=== PATIENT | male | born 1970 | race Caucasian/White ===

== ENCOUNTER → 2020-06-21 | Outpatient (CLI) | payer BC | LOC: YCFC.O 13:48 | PROVIDERS: ATTEND Nurse Practitioner Family | DX: Z20.828 Contact with and (suspected) exposure to other viral communicable diseases (principal) ==

== ENCOUNTER → 2020-06-26 | Outpatient (CLI) | payer BC ==
--- NOTE | 2020-06-26 16:09 | RAD ---
EXAM DESCRIPTION: Chest,2 Views CLINICAL HISTORY: COVID-19 COMPARISON: None available FINDINGS: The cardiomediastinal silhouette is unremarkable. There is no airspace consolidation or pleural effusion. The bronchovascular markings are within normal limits, and the lungs are not hyperinflated. There is no pneumothorax or acute fracture. IMPRESSION: Negative exam. Electronically signed by: Dinh Kumari MD 06/26/2020 4:08 PM [facility]
== END ==
LOC: YCFC.O 11:03
PROVIDERS: ATTEND Nurse Practitioner Family
DX: U07.1 COVID-19 (principal)